=== PATIENT | female | born 1990 | race Caucasian/White ===

== ENCOUNTER 2017-05-12 15:27 | Emergency (ER) | payer OTHER ==
[~2017-05-12] VITALS: Ht 157.5 cm; Wt 68.2 kg
[~2017-05-12 15:27] MED LIST: BUSP5TAB3 PO; IBUP-1827 PO; LORA10CA PO; OMEP20CA11 PO; TOPI100T32 PO; TRAZ150T72 PO
[2017-05-12 15:32] VITALS: BP 113/71; PULSE 89; RESP 16; O2SAT 99
--- NOTE | 2017-05-12 17:27 | ED.REPORT ---
HPI-General Illness Date of Service May 12, 2017 ED Provider: Deng Molina MD Pt is an 8 week 26 year old female with a history of seizure disorder, who presents to the ED c/o bilateral flank pain which she has been experiencing intermittently for 10 years, worse and constant for 4. Pt has been to [facility] 3 and 2 days ago for similar symptoms at which time US and labs were reportedly normal and she was told to return here to [facility] or [facility] for an MRI if she did not improve. She describes pain as constant on the left side and intermittent on the right. Pt denies mechanism of injury. Associated symptoms include nausea. Pt denies fever, cough, SOB, constipation, diarrhea, dysuria, vaginal discharge, vaginal bleeding, sore throat, head pain, or neck pain. There is no history of abdominal surgeries. She is and blood type O+. Per patient's spouse, pt has had previous seizure episodes. He reports that her seizures last about 1 minute in length. During the seizure, she is faint, twitching, unable to speak, and sometimes loses consciousness. She has previously taken Topiramate, but hasn't taken since January 03 because she lost the pill bottle. Nursing Notes Stated Complaint: PASSING OUT, SEIZURES, UPPER BODY PAIN Chief Complaint: General Complaint Nursing Notes Reviewed: Yes Allergies: Coded Allergies: Sulfa (Sulfonamide Antibiotics) (Verified Allergy, Severe, 05/08/15) cephalexin (Verified Allergy, Severe, 05/08/15) ciprofloxacin (Verified Allergy, Severe, 05/08/15) ciprofloxacin HCl (Verified Allergy, Severe, 05/08/15) penicillin V potassium (Verified Allergy, Severe, 05/08/15) Uncoded Allergies: KEFLEX (Allergy, Unknown, 05/08/15) LATEX (Allergy, Unknown, 05/08/15) Scheduled Buspirone (Buspirone) 5 Mg Tablet 5 MG PO DAILY Loratadine (Claritin) 10 Mg Capsule 10 MG PO DAILY Omeprazole (Omeprazole) 20 Mg Capsule.dr 20 MG PO DAILY Topiramate (Topamax) 100 Mg Tablet 100 MG PO DAILY Trazodone (Trazodone) 150 Mg Tablet 150 MG PO HS Scheduled PRN Ibuprofen (Ibuprofen) 600 Mg Tablet 600 MG PO QID PRN PRN For Pain General Time Seen by MD: 17:25 Chief Complaint Abdominal pain Hx Obtained From: Patient, Spouse Arrived By: Walk-in Sudden in Onset?: No Onset Occurred: 4 days ago Symptom Duration: Constant Quality: Painful Severity: Current: Mild Severity: Maximum: Moderate Recent Healthcare: Recent doctor visit, Recent hospitalization Similar Sx Previous: Yes Past Medical History Past Medical History Atrial septal defect s/p repair in 1993 Anxiety Blood type O+ currently 05/21 Past Surgical History Atrial septal defect s/p repair 1993 Smoking History Former Smoker Social History Drug Use: In recovery Other Social History: Good social support Ambulatory Status Independent Review of Systems No head or neck pain Full Review of Systems Constitutional: Denies: Fever Ears / Nose / Throat: Denies: Sore throat Respiratory: Denies: Non-productive cough, Shortness of breath GI: Reports: Abdominal pain, Nausea, Denies: Constipation, Diarrhea, Vomiting Female: Reports: Flank pain, , Denies: Dysuria, Vaginal bleeding - abnl, Vaginal discharge Complete sys rev & neg: except as marked. Physical Exam Vital Signs Vital Signs Date Time Temp Pulse Resp B/P Pulse Ox O2 Delivery O2 Flow Rate FiO2 05/12/17 15:32 37 89 16 113/71 99 Room Air Initial VS: Reviewed, Vital signs normal Head / Eyes: Atraumatic, Normocephalic ENT: Mucous membranes moist, Conjunctiva normal, No scleral icterus Neck: Supple, Full range of motion Respiratory: Breath sounds normal, Clear to auscultation, No respiratory distress Cardiovascular: Regular rate & rhythm, Heart sounds normal, Intact distal pulses Extremities: Vascular intact, Neuro intact Skin: Warm, Dry, No cyanosis Neurologic: Alert, Oriented, Nonfocal Psychiatric: Mood/affect normal, Behavior normal, Normal thought content General/Constitutional: Awake, Alert, No acute distress, Well appearing, Cooperative, Not toxic appearing Abdomen: Atraumatic, Soft, Non-tender, No guarding, No rebound, BS normoactive , No distention, No palpable mass Back: Full range of motion, Painless range of motion, No CVA tenderness Interpretation & Diagnostics Lab Results Interpretation Test 05/12/17 16:29 Re-Eval/Medical Decision Source of Hx: Old records Counseled Regarding: Diagnosis, Lab results Discharge & Departure Primary Impression: Bilateral flank pain Additional Impression: Nausea Discharge Condition All VS Reviewed: Yes Condition: Stable Referrals: Louis Dunham DO (PCP) Care Transferred to: Dr. Valverde Care Transferred at: 18:05 Scribe Attestation Portions of this note were transcribed by Karla Haley and Edwin Carey. I, Dr. Molina, personally performed the history, physical exam and medical decision-making; I reviewed and confirmed the accuracy of the information in the transcribed note. copies to: Louis Dunham Kirk H MD May 12, 2017 17:27 Karla Haley May 12, 2017 17:37 EDWIN CAREY May 12, 2017 18:08
[2017-05-12 18:28] LABS: BASOPHILS % (AUTO) 0.3 % (0-3); EOSINOPHILS % (AUTO) 1.5 % (0-5); Mean Corpuscular Hemoglobin 29.5 pg (27.0-35.0); Mean Corpuscular Volume 89.6 fL (81-100); NEUTROPHILS % (AUTO) 55.1 % (40-74); Platelet Count 242 bil/L (150-400)
[2017-05-12 19:25] VITALS: BP 95/61; PULSE 66; RESP 16; O2SAT 98
[2017-05-12 19:42] LABS: APPEARANCE,URINE HAZY (CLEAR,HAZY); COLOR,URINE YELLOW (YELLOW); OCCULT BLOOD,URINE LARGE (NEGATIVE)
[2017-05-12 19:43] LABS: UROBILINOGEN,URINE NORMAL (NORMAL)
[2017-05-12] MEDS ORDERED: diphenhydrAMINE 25 mg Capsule PO ONE (20:10)
[2017-05-12 21:18] VITALS: BP 110/73; PULSE 82; RESP 16; O2SAT 100
== END 2017-05-12 21:19 | disposition home or self-care (01) ==
LOC: SED 15:27
DX: O99.89 Other specified diseases and conditions complicating pregnancy, childbirth and the puerperium (principal); R10.31 Right lower quadrant pain; R10.32 Left lower quadrant pain; R11.0 Nausea; G40.909 Epilepsy, unspecified, not intractable, without status epilepticus; F41.9 Anxiety disorder, unspecified; F17.200 Nicotine dependence, unspecified, uncomplicated; Z3A.08 8 weeks gestation of pregnancy; Z98.890 Other specified postprocedural states; Z88.2 Allergy status to sulfonamides; Z88.1 Allergy status to other antibiotic agents; Z88.0 Allergy status to penicillin

== ENCOUNTER 2017-05-19 03:58 | Emergency (ER) | payer OTHER ==
[~2017-05-19] VITALS: Ht 157.5 cm; Wt 68.2 kg
[2017-05-19 04:02] VITALS: BP 99/70; PULSE 74; RESP 18; O2SAT 100
--- NOTE | 2017-05-19 04:13 | ED.REPORT ---
HPI-General Illness Date of Service May 19, 2017 ED Provider: Shan Eng MD Pt is a eight week 26 year old female with a history of anxiety and methamphetamine abuse who presents to the ED complaining of nausea. The pt has been experiencing nausea and vomiting during the morning and afternoon during her , and has vomited once today. Pt denies hematochezia, hematuria, hematemesis or pelvic pain. She is concerned because she did not experience similar symptoms during her previous . Nursing Notes Stated Complaint: NAUSEA Chief Complaint: & Delivery Nursing Notes Reviewed: Yes Allergies: Coded Allergies: Sulfa (Sulfonamide Antibiotics) (Verified Allergy, Severe, 05/08/15) cephalexin (Verified Allergy, Severe, 05/08/15) ciprofloxacin (Verified Allergy, Severe, 05/08/15) ciprofloxacin HCl (Verified Allergy, Severe, 05/08/15) penicillin V potassium (Verified Allergy, Severe, 05/08/15) Uncoded Allergies: LATEX (Allergy, Unknown, 05/08/15) Scheduled Buspirone (Buspirone) 5 Mg Tablet 5 MG PO DAILY Loratadine (Claritin) 10 Mg Capsule 10 MG PO DAILY Omeprazole (Omeprazole) 20 Mg Capsule.dr 20 MG PO DAILY Topiramate (Topamax) 100 Mg Tablet 100 MG PO DAILY Trazodone (Trazodone) 150 Mg Tablet 150 MG PO HS Scheduled PRN Ibuprofen (Ibuprofen) 600 Mg Tablet 600 MG PO QID PRN PRN For Pain Promethazine HCl (Phenergan) 25 Mg Supp.rect 25 MG RC TID PRN PRN For Nausea General Time Seen by MD: 04:08 Chief Complaint Other (Nausea ) Hx Obtained From: Patient Arrived By: Walk-in Sudden in Onset?: Yes Symptom Duration: Intermittent Recent Healthcare: No recent doctor visit, No recent hospitalization Similar Sx Previous: Yes Past Medical History Past Medical History Atrial septal defect s/p repair in 1993 Anxiety Blood type O+ currently 05/21 Past Surgical History Atrial septal defect s/p repair 1993 Smoking History Former Smoker Social History Drug Use: Meth Other Social History: Good social support Ambulatory Status Independent Review of Systems Full Review of Systems Respiratory: Denies: Non-productive cough, Shortness of breath Cardiovascular: Denies: Chest pain GI: Reports: Nausea, Vomiting, Denies: Abdominal pain, Hematemesis, Hematochezia Female: Denies: Hematuria, Pelvic pain Musculoskeletal: Denies: Back pain, Neck pain Skin: Denies Rash Complete sys rev & neg: except as marked. Physical Exam Vital Signs Vital Signs Date Time Temp Pulse Resp B/P Pulse Ox O2 Delivery O2 Flow Rate FiO2 05/19/17 06:13 70 18 102/72 96 Room Air 05/19/17 04:02 37.1 74 18 99/70 100 Room Air Initial VS: Reviewed General/Constitutional: Awake, Alert, No acute distress Head / Eyes: Atraumatic, Normocephalic, PERRL, EOMI ENT: Atraumatic, Airway patent, Mucous membranes moist Neck: Atraumatic, Supple, Full range of motion Respiratory / Chest: Atraumatic, Breath sounds NL, Breath sounds = bilat, No respiratory distress Cardiovascular: Heart rate NL, Regular rhythm, Heart sounds NL Abdomen: Atraumatic, Soft, Non-tender Back: Atraumatic, Inspection NL, Full range of motion Upper Extremities Upper Extremity / MS: Atraumatic, Inspection NL, Full range of motion Lower Extremity / Pelvis / MS: Atraumatic, Inspection NL, Full range of motion Skin: Atraumatic, Color NL, No rash, Warm, Dry Neurologic: Oriented X3, Speech NL, No motor deficits, No sensory deficits Psychiatric: Affect NL, Mood NL Interpretation & Diagnostics Lab Results Interpretation Result Diagram: 05/19/175 05/19/17 0445 Test 05/19/17 04:20 05/19/17 04:45 Urine Color Yellow (YELLOW) Urine Appearance Clear (CLEAR,HAZY) Urine pH 6.0 (5.0-8.0) Urine Specific [place] 1.020 (1.003-1.035) Urine Protein Negativemg/dL (NEG,TRACE) Urine Glucose (UA) Negativemg/dL (NEGATIVE) Urine Ketones Negativemg/dL (NEGATIVE) Urine Occult Blood Moderate (NEGATIVE) Urine Nitrite Negative (NEGATIVE) Urine Bilirubin Negative (NEGATIVE) Urine Urobilinogen Normalmg/dL (NORMAL) Urine Leukocyte Esterase Negative (NEGATIVE) Urine RBC 3-10/hpf (0-2) Urine WBC 0-5/hpf (0-5) Urine Epithelial Cells Occasional/hpf (NONE-MOD) Urine Crystals None seen (NONE SEEN) Urine Bacteria None/hpf (NONE-FEW) Urine Hyaline Casts None/lpf (NONE) Urine Granular Casts None seen (NONE SEEN) Urine Waxy Casts None seen (NONE SEEN) Urine Red Blood Cell Casts None seen (NONE SEEN) Urine White Blood Cell Casts None seen (NONE SEEN) Urine Mucus None seen (None Seen) Urine Trichomonas None seen (NONE SEEN) Urine Yeast None (NONE SEEN) Urinalysis Comment None Urine Culture Reflexed Not indicated White Blood Count 9.3th/mm3 (3.8-10.1) Red Blood Count 3.84mil/mm3 (3.90-5.20) Hemoglobin 11.5g/dL (12.0-15.6) Hematocrit 34.4% (35.0-46.0) Mean Corpuscular Volume 89.6fL (81-100) Mean Corpuscular Hemoglobin 29.9pg (27.0-35.0) Mean Corpuscular Hemoglobin Concent 33.4% (32.0-37.0) Red Cell Distribution Width 12.3% (12.3-15.4) Platelet Count 231bil/L (150-400) Neutrophils (%) (Auto) 55.9% (40-74) Lymphocytes (%) (Auto) 33.6% (14-46) Monocytes (%) (Auto) 8.2% (4-12) Eosinophils (%) (Auto) 1.8% (0-5) Basophils (%) (Auto) 0.3% (0-3) Prothrombin Time 9.4sec (8.1-12.5) Prothromb Time International Ratio 0.88ratio Sodium Level 134mEq/L (134-144) Potassium Level 4.3mEq/L (3.5-5.2) Chloride Level 102mEq/L (97-108) Carbon Dioxide Level 21mmol/L (18-29) Blood Urea Nitrogen 12mg/dL (6-20) Creatinine 0.37mg/dL (0.57-1.00) Estimat Glomerular Filtration Rate 298mL/min (>59) Glucose Level 88mg/dL (60-99) Calcium Level 8.5mg/dL (8.5-10.1) Magnesium Level 1.8mg/dL (1.6-2.6) Total Bilirubin 0.2mg/dL (0.0-1.2) Aspartate Amino Transf (AST/SGOT) 16U/L (0-50) Alanine Aminotransferase (ALT/SGPT) 8U/L (0-32) Alkaline Phosphatase 41U/L (25-150) Total Protein 6.6g/dL (6.4-8.4) Albumin 3.7g/dL (3.4-5.0) Lipase 23U/L (13-60) Re-Eval/Medical Decision Med Decision/Clinical Course 18-year-old history of methamphetamine abuse presents with nausea and vomiting in an eight week . Improved here after treatment. Home with Phenergan suppositories until at least thirteen weeks. Meth positivity noted and discussed with patient. She denies meth use. Source of Hx: Old records Time of Eval: 05:59 Patient Status: Condition improved Re-Evaluation/Progress Note: Pt rechecked. Informed pt of plan for discharge. Pt understands and agrees with plan. F/U instructions and RTER warnings given. All questions addressed. Counseled Regarding: Diagnosis, Need for follow-up, When/why to return to ED Discharge & Departure Primary Impression: Hyperemesis gravidarum Additional Impression: Methamphetamine abuse Disposition: Home Discharge Condition All VS Reviewed: Yes Condition: Stable Patient Instructions: Hyperemesis Gravidarum (ED) Additional Instructions: Drink Clear fluids such as Gatorade or Powerade or Pedialyte to stay hydrated. Use Phenergan suppositories if needed to control the nausea and allow you to maintain hydration. Follow-up with your doctor and [facility]. Return if you have any immediate issues with bleeding, or other new symptoms of concern. Do not smoke, drink, or use drugs while . Referrals: Louis Dunham DO (PCP) Scribe Attestation Portions of this note were transcribed by Maty Ward and Gama Bullock. I, Dr. Eng personally performed the history, physical exam and medical decision -making; I reviewed and confirmed the accuracy of the information in the transcribed note. copies to: Louis Dunham Christopher W MD May 19, 2017 04:13 Maty Ward May 19, 2017 04:19 GAMA BULLOCK May 19, 2017 06:31
[2017-05-19] MEDS ORDERED: 0.9% Sodium Chloride 1,000 ML IV ONE (04:21)
[2017-05-19] MEDS ORDERED: Promethazine Inj 25 MG in 0.9% Sodium Chloride 50 ML IV ONE (04:25)
[2017-05-19 04:52] LABS: APPEARANCE,URINE CLEAR (CLEAR,HAZY); COLOR,URINE YELLOW (YELLOW); OCCULT BLOOD,URINE MODERATE (NEGATIVE); UROBILINOGEN,URINE NORMAL (NORMAL)
[2017-05-19 05:03] LABS: BASOPHILS % (AUTO) 0.3 % (0-3); EOSINOPHILS % (AUTO) 1.8 % (0-5); MONOCYTES % (AUTO) 8.2 % (4-12); Mean Corpuscular Hemoglobin 29.9 pg (27.0-35.0); Mean Corpuscular Volume 89.6 fL (81-100); NEUTROPHILS % (AUTO) 55.9 % (40-74); Platelet Count 231 bil/L (150-400)
[2017-05-19 05:28] LABS: INR 0.88 ratio
[2017-05-19 05:33] LABS: Magnesium 1.8 mg/dL (1.6-2.6)
[2017-05-19] MEDS ORDERED: PROM25SU46 RC (05:56)
[2017-05-19 06:13] VITALS: BP 102/72; PULSE 70; RESP 18; O2SAT 96
== END 2017-05-19 06:14 | disposition home or self-care (01) ==
LOC: SED 03:58
DX: O21.0 Mild hyperemesis gravidarum (principal); F15.10 Other stimulant abuse, uncomplicated; F41.9 Anxiety disorder, unspecified; Z3A.08 8 weeks gestation of pregnancy; Z87.891 Personal history of nicotine dependence; Z88.2 Allergy status to sulfonamides; Z88.1 Allergy status to other antibiotic agents; Z88.0 Allergy status to penicillin
CPT/HCPCS: 36415; 80053; 81000; 81002; 83690; 83735; 85025; 85610; 96361; 96374; 99284; J2550; J7030